=== PATIENT | female | born 1985 | race African-American/Black ===

== ENCOUNTER 2016-10-15 20:16 | Emergency (ER) | payer MEDICAID ==
[~2016-10-15] VITALS: Ht 170.2 cm; Wt 136.0 kg
[2016-10-15] MEDS ORDERED: MORPHINE SULFATE 4 MG/ML CPJ (NOT FOR IM USE) IV ONE (21:00)
[2016-10-15 21:10] LABS: BASOPHILS % 1.3 % (0.0-2.0); EOSINOPHILS % 2.9 % (0.0-5.0); HEMATOCRIT. 40.6 % (36.0-48.0); HEMOGLOBIN. 13.3 g/dL (12.0-16.0); LYMPHOCYTES % 27.7 % (20.0-50.0); MEAN CORPUSCULAR VOLUME 79.3 fL (81.0-99.0); MEAN PLATELET VOLUME 8.8 fl (7.4-10.4); MONOCYTES % 6.7 % (2.0-8.0); NEUTROPHILS % 61.4 % (40.0-76.0); PLATELET 321 x1000/uL (130-400); RED BLOOD CELL COUNT 5.12 mill/uL (4.2-5.4); RED CELL DISTRIBUTION WIDTH 14.5 % (11.6-14.6)
[2016-10-15 21:17] LABS: D-DIMER < 0.19 mg/L FEU (<0.50); PROTHROMBIN TIME 10.4 sec
[2016-10-15 21:24] LABS: CARBON DIOXIDE 28 mEq/L (21-32); CHLORIDE 105 mEq/L (98-107)
[2016-10-15 23:00] VITALS: BP 133/62
== END 2016-10-15 23:13 | disposition home or self-care (01) ==
LOC: ER 20:38
DX: R07.2 Precordial pain (principal)
CPT/HCPCS: 36415; 71010; 80053; 81025; 83880; 85025; 85379; 85610; 93005; 96374; 99285; J2270; Z7610